=== PATIENT | female | born 1975 | race American Indian/Alaskan Native ===

== ENCOUNTER 2019-06-11 08:16 | Emergency (ER) | payer MEDICAID ==
[2019-06-11 08:21] VITALS: BP 141/109
--- NOTE | 2019-06-11 08:54 | Emergency Department Report ---
Chief Complaint: Upper Respiratory Infection Stated Complaint: SOB/FLU SX Time Seen by Provider: 06/11/19 08:51 - HPI History of Present Illness: Patient is a 43-year-old Femalein the past medical history who is here for 24 hours of flulike symptoms. Patient states she has cough congestion and body aches and bilateral ear pain. Patient states she is having some mild nausea vomiting only when she is lying flat. Patient states she has grandchildren who have been recently ill as well. - ROS Review of Systems: All other systems are reviewed and are negative - Exam Vital Signs: Vital Signs 06/11/19 08:20 Temperature 97.8 F Pulse Rate 94 H Respiratory 20 Rate Blood Pressure 141/109 [Right] O2 Sat by Pulse 100 Oximetry Physical Exam: Patient is alert and oriented 3 in no acute distress. Patient's lungs are clear to auscultation abdomen soft and nontender heart tones was normal limits. Bilateral TMs appear normal. No anterior cervical lymph node adenopathy. Patient is no acute distress. MSE screening note: Focused history and physical exam performed. Due to findings the following was ordered: ED Medical Decision Making - Medical Decision Making In with flulike symptoms at this time. Patient given education on [id number] medications she can take and given outpatient resources. ED Disposition for MSE Clinical Impression: Flu-like symptoms Disposition: MED SCREENING EXAM-LEFT Is pt being admited?: No Does the pt Need Aspirin: No Condition: Stable Instructions: Influenza (ED) Referrals: CORBY VERDIN MD [Staff Physician] - 3-5 Days Time of Disposition: 08:54
== END 2019-06-11 08:54 | disposition left against medical advice (07) ==
LOC: ED 08:16
DX: R05 Cough (principal); R09.81 Nasal congestion; H92.03 Otalgia, bilateral; M79.10 Myalgia, unspecified site; Z88.0 Allergy status to penicillin
CPT/HCPCS: 99281